=== PATIENT | male | born 1940 | race Caucasian/White ===

== ENCOUNTER 2021-04-23 09:13 | Day surgery (SDC) | payer MEDICARE ==
[2021-04-17 11:36] LABS: BASOPHILS % (AUTO) 0.2 % (0.0-5.0); EOSINOPHILS % (AUTO) 0.7 % (0.0-8.0); HEMATOCRIT 45.4 % (42-54); MEAN CORPUSCULAR HGB CONC 33.9 g/dL (32.0-36.0); MEAN CORPUSCULAR VOLUME 88.3 fL (79-99); MONOCYTES % (AUTO) 13.3 % (3.0-13.0); NEUTROPHILS % (AUTO) 52.1 % (40.0-77.0); PLATELET COUNT (AUTO) 153 K/uL (130-400); RED BLOOD CELL COUNT(AUTO) 5.14 MIL/uL (4.50-6.20); WHITE BLOOD COUNT (AUTO) 4.2 K/uL (4.8-10.8)
[2021-04-17 11:38] LABS: APPEARANCE,URINE Clear (CLEAR); BILIRUBIN,URINE Negative (NEGATIVE); COLOR,URINE Yellow (YELLOW); GLUCOSE, URINE (UA) Negative (NEGATIVE); KETONES,URINE Negative (NEGATIVE); LEUKOCYTE ESTERASE ,URINE Trace (NEGATIVE); NITRATE,URINE Negative (NEGATIVE); OCCULT BLOOD,URINE Negative (NEGATIVE); PH,URINE 5.5 (5.0-8.0); PROTEIN,URINE Negative (NEGATIVE)
[2021-04-17 11:41] LABS: BACTERIA,URINE Rare /HPF (None Seen); RBC,URINE 0-1 /HPF (0-1); SQUAMOUS EPITHELIAL CELL,UR Rare /HPF (0-2); WBC,URINE 0-1 /HPF (0-1)
[2021-04-17 11:49] LABS: CREATININE 0.9 mg/dL (0.5-1.5)
[2021-04-17 11:55] LABS: PROTHROMBIN TIME 10.9 SEC (9.6-11.6)
[2021-04-17 11:57] LABS: PARTIAL THROMBOPLASTIN TIME 29.4 SEC (26.3-35.5)
[2021-04-22 09:18] VITALS: BP 156/82
[2021-04-23] VITALS (16 sets, daily range): BP systolic 109–156; BP diastolic 50–97
[~2021-04-23 09:13] MED LIST: ASCO100031 PO; CALCIUM PO; CINN500C PO; GENTAMICIN 80 MG/NS 100 ML PB 100 ML IV SCH; LEVO500T89 PO; MULT-1285 PO; OMEG-148 PO; SIMV-43 PO; TAMS-1 PO
[2021-04-23] MEDS ORDERED: LACTATED RINGERS 1000ML 1,000 ML IV ONE (10:15)
[2021-04-23] MEDS: CEFTRIAXONE 1G VIAL IV SCH ×2 (10:45→12:30)
[2021-04-23] MEDS ORDERED: NEOSTIGMINE 5MG/5ML SYR IV ONE (12:39)
[2021-04-23] MEDS ORDERED: LIDOCAINE PF 100MG/5ML (2%) SYRINGE 5ML ONE (12:39)
[2021-04-23] MEDS ORDERED: DEXAMETHASONE SOD PHOSPHATE 10MG/ML 1ML VIAL ONE (12:39)
[2021-04-23] MEDS ORDERED: SUCCINYLCHOLINE 200MG/10ML SYR ONE (12:39)
[2021-04-23] MEDS ORDERED: GLYCOPYRROLATE 1 MG/5 ML SYRINGE ONE (12:39)
[2021-04-23] MEDS ORDERED: PROPOFOL 10 MG/ML 20ML VIAL IV ONE (12:39)
[2021-04-23] MEDS ORDERED: FENTANYL CITRATE PF 50 MCG/1 ML 2ML VIAL ONE (12:40)
[2021-04-23] MEDS ORDERED: ROCURONIUM 10MG/1ML SYR 10 MG/ML ML ONE (12:40)
[2021-04-23] MEDS ORDERED: ALBUTEROL INHALER 90MCG/INH IH ONE (14:04)
[2021-04-23] MEDS ORDERED: MEPERIDINE-PF 25 MG/ML SYG ONE (14:34)
== END 2021-04-23 16:20 | disposition home or self-care (01) ==
LOC: DAH 09:13
PROVIDERS: ATTEND Urology
DX: N40.1 Benign prostatic hyperplasia with lower urinary tract symptoms (principal); Z20.822 Contact with and (suspected) exposure to COVID-19; R97.20 Elevated prostate specific antigen [PSA]; J44.9 Chronic obstructive pulmonary disease, unspecified; K21.9 Gastro-esophageal reflux disease without esophagitis; M19.90 Unspecified osteoarthritis, unspecified site; Z79.01 Long term (current) use of anticoagulants
CPT/HCPCS: 36415; 52648; 55700; 71045; 76872; 80048; 81001; 85025; 85610; 85730; 87088; 87635; 93005; A4213; A4215 ×2; A4221; A4222; A4223 ×2; A4354; A4358; A4663; A6260; C9803; J0330; J0696; J1100; J1580; J2001; J2175; J2704; J2710; J3010; J3490; J7120; 76942; 96365